=== PATIENT | female | born 1950 | race Caucasian/White ===

== ENCOUNTER 2017-10-31 14:15 | Emergency (ER) | payer MEDICARE ==
[~2017-10-31] VITALS: Ht 160 cm; Wt 65.3 kg
[2017-10-31] MEDS ORDERED: LAMO25TA5 PO (14:22)
[2017-10-31] MEDS ORDERED: DIVA500T4 PO (14:22)
[2017-10-31] MEDS ORDERED: LEVO50TA8 PO (14:22)
[2017-10-31] MEDS ORDERED: OLAN20TA3 PO (14:22)
--- NOTE | 2017-10-31 14:25 | NUR ---
PATIENT WAS SEEN AND EVAL ARVIN RICH AT BEDSIDE ROOM 03A.
[2017-10-31] MEDS ORDERED: LORAZEPAM 0.5 MG TABLET PO ONE (14:30)
[2017-10-31 14:45] VITALS: BP 12/80
--- NOTE | 2017-10-31 14:45 | NUR ---
Patient discharged to home in stable conditon. Written and verbal after care instructions given. Patient verbalizes understanding of instructions. Patient will follow up with PMD.
[2017-10-31] MEDS ORDERED: LORAZEPAM 1 MG TABLET ONE (14:53)
[2017-11-01] MEDS ORDERED: TIMO5SOL11 EACHEYE (17:13)
[2017-11-01] MEDS ORDERED: LATA2.5D7 EACHEYE (17:14)
[2017-11-01] MEDS ORDERED: BRIM10DR6 EACHEYE (17:17)
[2017-11-01] MEDS ORDERED: BETH25TA PO (23:53)
== END 2017-10-31 14:45 | disposition home or self-care (01) ==
LOC: ER 14:15
DX: F41.9 Anxiety disorder, unspecified (principal); F31.9 Bipolar disorder, unspecified
CPT/HCPCS: 99284; A4663

== ENCOUNTER 2017-11-01 13:03 | Inpatient (IN) | payer MEDICARE ==
[~2017-11-01] VITALS: Ht 160 cm; Wt 66.2 kg
[~2017-11-01 13:03] MED LIST: DIVA500T4 PO; LAMO25TA5 PO; LEVO50TA8 PO; OLAN20TA3 PO
--- NOTE | 2017-11-01 13:40 | NUR ---
PATIENT WAS SEEN AND EVAL BY DR OMALLEY AT BEDSIDE ROOM 02A. PATIENT NOTES NOT IN ANY DISTRESS.
[2017-11-01 14:50] LABS: *BILIRUBIN,URIN NEGATIVE (NEGATIVE); *BLOOD, URINE NEGATIVE (NEGATIVE); *COLOR,URINE STRAW (YELLOW); *KETONES,URINE NEGATIVE (NEGATIVE); *PROTEIN,URINE NEGATIVE (NEGATIVE); *UROBILINOGEN,URINE 0.2 E.U./dl (NORMAL); LEUKOCYTE ESTERASE ,URINE 1+ (NEGATIVE); NITRITE, URINE NEGATIVE (NEGATIVE); PH,URINE 5.5 (5.0-8.0); UGLUCOSE NEGATIVE (NEGATIVE)
[2017-11-01 14:56] LABS: *CLARITY,URINE SLIGHTLY HAZY (CLEAR)
[2017-11-01 15:02] LABS: BACTERIA,URINE FEW /HPF (NONE SEEN); SQUAMOUS EPITHELIAL CELL,UR MODERATE /HPF (NONE SEEN)
[2017-11-01 15:05] LABS: BASOPHILS # (AUTO) 0.1 K/uL (0.0-8.0); LYMPHOCYTES # (AUTO) 1.8 K/uL (20.0-40.0); MEAN CORPUSCULAR HEMOGLOBIN 23.5 uug (24.7-32.8); WHITE BLOOD COUNT (AUTO) 4.4 K/uL (3.8-11.8)
--- NOTE | 2017-11-01 15:10 | NUR ---
Spoke with Vivek Knutson for psych eval, eta 30 mins.
[2017-11-01 15:11] LABS: BASOPHILS % (AUTO) 1.7 % (0.0-2.0); EOSINOPHILS # (AUTO) 0.3 K/uL (0.0-0.7); HEMATOCRIT 31.7 % (31.2-41.9); HEMOGLOBIN 9.9 g/dL (10.9-14.3); LYMPHOCYTES % (AUTO) 40.8 % (20.5-51.5); MEAN CORPUSCULAR HGB CONC 31 g/dL (32.3-35.6); MEAN CORPUSCULAR VOLUME 75.5 fL (75.5-95.3); MONOCYTES # (AUTO) 0.4 K/uL (2.0-10.0); MONOCYTES % (AUTO) 9.1 % (0.0-11.0); NEUTROPHILS # (AUTO) 1.9 K/uL (1.8-8.9); NEUTROPHILS % (AUTO) 42.4 % (38.5-71.5); PLATELET COUNT (AUTO) 446 K/uL (179-408)
[2017-11-01 15:12] LABS: CARBON DIOXIDE 23 mmol/L (21-32); CHLORIDE 108 mmol/L (98-107); CREATININE 0.8 mg/dL (0.6-1.3); GLUCOSE 94 mg/dL (74-106); POTASSIUM 3.4 mmol/L (3.5-5.1); UREA NITROGEN, BLOOD 16 mg/dL (7-18)
[2017-11-01 15:18] LABS: ALANINE AMINOTRANSFERASE 21 U/L (14-59); ALKALINE PHOSPHATASE 81 U/L (50-136); ASPARTATE AMINOTRANSFERASE 11 U/L (15-37); BILIRUBIN,DIRECT 0.1 mg/dL (0.0-0.2); BILIRUBIN,TOTAL 0.2 mg/dL (0.2-1.0); TOTAL PROTEIN, SERUM 7.1 g/dL (6.4-8.2)
[2017-11-01 15:21] LABS: ACETAMINOPHEN < 2.0 ug/mL (10-30)
[2017-11-01 15:33] LABS: ETHANOL < 3 MG/DL (0-0)
[2017-11-01 15:41] LABS: *AMPHETAMINE, URINE NEGATIVE (NEGATIVE); *BARBITURATE, URINE NEGATIVE (NEGATIVE); *CANNABINOID, URINE NEGATIVE (NEGATIVE); *COCCAINE, URINE NEGATIVE (NEGATIVE); *OPIATE, URINE NEGATIVE (NEGATIVE); *PHENCYCLIDINE SCREEN,URINE NEGATIVE (NEGATIVE)
[2017-11-01 15:59] LABS: THYROID STIMULATING HORMONE 0.838 mIU/mL (0.358-3.740)
[2017-11-01 17:00] VITALS: BP 132/66
[2017-11-01] MEDS ORDERED: MAG HYDROX/AL HYDROX/SIMETH 30 ML LIQUID UDC PO PRN (17:00)
[2017-11-01] MEDS ORDERED: MAGNESIUM HYDROXIDE 30 ML LIQUID UDC PO PRN (17:00)
[2017-11-01] MEDS ORDERED: TIMO5SOL11 EACHEYE (17:13)
[2017-11-01] MEDS ORDERED: LATA2.5D7 EACHEYE (17:14)
[2017-11-01] MEDS ORDERED: BRIM10DR6 EACHEYE (17:17)
[2017-11-01 19:51] VITALS: BP 105/72
--- NOTE | 2017-11-01 20:00 | NUR ---
PT RECEIVED IN THE HALLWAY NEAR THE NURSES STATION, ABLE TO MAKE NEEDS KNOWN, ASKING FOR HER 'OVER REACTIVE BLADDER' MEDICINE. PT ALSO REQUESTED FOR SLEEP MEDICINE, WILL CONTINUE TO MONITOR CLOSELY.
[2017-11-01] MEDS: ACETAMINOPHEN 325 MG TABLET PO PRN (20:27)
[2017-11-01] MEDS: TEMAZEPAM 7.5 MG CAPSULE PO PRN (20:28)
[2017-11-01] MEDS: ERYTHROMYCIN 0.5% OPHT OINT 3.5 GM TUBE LEFTEYE SCH (20:28)
[2017-11-01] MEDS: LATANOPROST OPHT DROP 2.5 ML BOTTLE EACHEYE SCH (22:19)
[2017-11-01] MEDS: TIMOLOL MALEATE XE 0.5% OPHT 5 ML BOTTLE EACHEYE SCH (22:19)
[2017-11-01] MEDS: LORAZEPAM 1 MG TABLET PO PRN (23:42)
[2017-11-01] MEDS ORDERED: BETH25TA PO (23:53)
[2017-11-02] MEDS: LEVOTHYROXINE SODIUM 50 MCG TABLET PO SCH (06:30)
[2017-11-02 07:30] VITALS: BP 115/71
[2017-11-02] MEDS: LORAZEPAM 1 MG TABLET PO PRN ×2 (09:27→13:47)
[2017-11-02] MEDS: TIMOLOL MALEATE XE 0.5% OPHT 5 ML BOTTLE EACHEYE SCH ×2 (09:27→20:44)
[2017-11-02] MEDS: BRIMONIDINE 0.2% OPHT DROP 10 ML BOTTLE EACHEYE SCH ×3 (09:27→17:50)
--- NOTE | 2017-11-02 11:35 | NUR ---
Initial Discharge Note: Patient currently resides at [address] [place] [address] , [place] [address]; [phone]. Pt reports that she wants to go back to her home after discharge. Pt states that she has no primary contact and does not want anyone involved in her discharge planning. SW will follow up with MD and patient to discuss most appropriate discharge plans. SW will form a safe and proper discharge.
[2017-11-02] MEDS: ACETAMINOPHEN 325 MG TABLET PO PRN (12:16)
[2017-11-02 15:25] VITALS: BP 101/75
[2017-11-02 19:50] VITALS: BP 90/53
[2017-11-02] MEDS: DIVALPROEX 250 MG TABLET.DR PO SCH (20:36)
[2017-11-02] MEDS: QUETIAPINE FUMARATE 100 MG TABLET PO SCH (20:36)
[2017-11-02] MEDS: MIRTAZAPINE 15 MG TABLET PO SCH (20:36)
[2017-11-02] MEDS: ERYTHROMYCIN 0.5% OPHT OINT 3.5 GM TUBE LEFTEYE SCH (20:43)
[2017-11-02] MEDS: LATANOPROST OPHT DROP 2.5 ML BOTTLE EACHEYE SCH (20:44)
--- NOTE | 2017-11-02 22:00 | NUR ---
received to care, lying in bed, pleasant, upon approach. compliant with medications and staff direction. as of 2199, she remains awake. no distress noted. will continue to monitor closely.
[2017-11-02] MEDS: TEMAZEPAM 7.5 MG CAPSULE PO PRN (22:07)
--- NOTE | 2017-11-02 22:07 | NUR ---
PRN restoril given for insomnia.
[2017-11-02] MEDS ORDERED: POTASSIUM CHLORIDE 20 MEQ TAB.PRT.SR PO ONE (22:45)
[2017-11-02] MEDS ORDERED: CEPHALEXIN MONOHYDRATE 250 MG CAPSULE PO ONE (23:00)
--- NOTE | 2017-11-02 23:00 | NUR ---
appears to be asleep. no distress noted.
[2017-11-02] MEDS ORDERED: CEPHALEXIN MONOHYDRATE 250 MG CAPSULE ONE (23:55)
[2017-11-03] MEDS: LORAZEPAM 1 MG TABLET PO PRN ×2 (03:17→07:57)
--- NOTE | 2017-11-03 03:17 | NUR ---
is now awake. PRN ativan given for anxiety.
[2017-11-03] MEDS: LEVOTHYROXINE SODIUM 50 MCG TABLET PO SCH (06:14)
[2017-11-03] MEDS: CEPHALEXIN MONOHYDRATE 250 MG CAPSULE PO SCH ×3 (06:14→22:04)
[2017-11-03 07:54] VITALS: BP 106/75
[2017-11-03] MEDS: ACETAMINOPHEN 325 MG TABLET PO PRN (07:57)
[2017-11-03] MEDS: DIVALPROEX 250 MG TABLET.DR PO SCH ×3 (08:44→20:36)
[2017-11-03] MEDS: TIMOLOL MALEATE XE 0.5% OPHT 5 ML BOTTLE EACHEYE SCH ×2 (08:45→20:37)
[2017-11-03] MEDS: BRIMONIDINE 0.2% OPHT DROP 10 ML BOTTLE EACHEYE SCH ×3 (08:45→17:35)
--- NOTE | 2017-11-03 13:25 | NUR ---
GPS/VEGETABLE BUNCHER-PATIENT WEARS BILATERAL HEARING AIDS.ANXIOUS,WORRIED THAT SHE WAS PUT ON 14 DAY HOLS, EXPLAINED REASONS , VERBALIZED UNDERSTANDING
[2017-11-03 15:03] VITALS: BP 114/70
--- NOTE | 2017-11-03 15:26 | NUR ---
Gps/Planing Machine Operator- Claimed she forgot to asked Medical Doctor about her urecholine 25 mg 2x a day, claimed she had been taking the medicine to help her bladder.Wears bilateral hearing aids on, reminded to be extra careful where she puts them when she takes them out, verbalized understanding
[2017-11-03] MEDS: BETHANECHOL CHLORIDE 25 MG TABLET PO SCH (17:34)
[2017-11-03 19:49] VITALS: BP 99/62
[2017-11-03] MEDS: QUETIAPINE FUMARATE 100 MG TABLET PO SCH (20:36)
[2017-11-03] MEDS: MIRTAZAPINE 15 MG TABLET PO SCH (20:36)
[2017-11-03] MEDS: ATORVASTATIN 20 MG TABLET PO SCH (20:36)
[2017-11-03] MEDS: LATANOPROST OPHT DROP 2.5 ML BOTTLE EACHEYE SCH (20:37)
[2017-11-03] MEDS: ERYTHROMYCIN 0.5% OPHT OINT 3.5 GM TUBE LEFTEYE SCH (20:37)
[2017-11-03] MEDS: TEMAZEPAM 7.5 MG CAPSULE PO PRN (22:14)
--- NOTE | 2017-11-04 05:32 | NUR ---
Patient slept 10 hours this shift. No behavioral issues. Med compliant. No acute distress noted. Safety and comfort measures maintained t/o shift. Room is kept clutter free. Bed was in low and locked position. All meds given as ordered. All needs met.
[2017-11-04] MEDS: LEVOTHYROXINE SODIUM 50 MCG TABLET PO SCH (06:08)
[2017-11-04] MEDS: CEPHALEXIN MONOHYDRATE 250 MG CAPSULE PO SCH ×3 (06:08→21:46)
[2017-11-04] MEDS: BETHANECHOL CHLORIDE 25 MG TABLET PO SCH ×2 (06:40→17:39)
[2017-11-04 07:30] VITALS: BP 127/81
[2017-11-04] MEDS: TIMOLOL MALEATE XE 0.5% OPHT 5 ML BOTTLE EACHEYE SCH ×2 (08:46→20:23)
[2017-11-04] MEDS: BRIMONIDINE 0.2% OPHT DROP 10 ML BOTTLE EACHEYE SCH ×3 (08:46→17:39)
[2017-11-04] MEDS: DIVALPROEX 250 MG TABLET.DR PO SCH ×3 (08:46→20:24)
[2017-11-04] MEDS ORDERED: PNEUMOCOCCAL 23-VAL P-SAC VAC 0.5 ML VIAL IM ONE (09:00)
[2017-11-04] MEDS: ACETAMINOPHEN 325 MG TABLET PO PRN (10:30)
--- NOTE | 2017-11-04 12:44 | NUR ---
Gps/Patient Care Representative -Participates and attends group therapy. Complained of headache, tylenol 650 mg po given with adequate relief.Stays in the dinning room during her meals.Vebalizing needs and interacting with her selected peers.
[2017-11-04] MEDS: LORAZEPAM 1 MG TABLET PO PRN (14:30)
[2017-11-04 15:39] VITALS: BP 112/76
--- NOTE | 2017-11-04 18:00 | NUR ---
Gps/Senior Sous Chef- Patient received pneumococcal vaccine as requested, administered IM to her left deltoid area .
[2017-11-04 19:37] VITALS: BP 128/74
[2017-11-04] MEDS: LATANOPROST OPHT DROP 2.5 ML BOTTLE EACHEYE SCH (20:23)
[2017-11-04] MEDS: QUETIAPINE FUMARATE 100 MG TABLET PO SCH (20:24)
[2017-11-04] MEDS: ERYTHROMYCIN 0.5% OPHT OINT 3.5 GM TUBE LEFTEYE SCH (20:24)
[2017-11-04] MEDS: MIRTAZAPINE 15 MG TABLET PO SCH (20:24)
[2017-11-04] MEDS: ATORVASTATIN 20 MG TABLET PO SCH (20:24)
[2017-11-04] MEDS: TEMAZEPAM 7.5 MG CAPSULE PO PRN (22:09)
[2017-11-04] MEDS ORDERED: TEMAZEPAM 7.5 MG CAPSULE ONE (22:17)
[2017-11-05] MEDS: CEPHALEXIN MONOHYDRATE 250 MG CAPSULE PO SCH ×3 (05:48→22:09)
[2017-11-05] MEDS: LEVOTHYROXINE SODIUM 50 MCG TABLET PO SCH (06:03)
[2017-11-05] MEDS: BETHANECHOL CHLORIDE 25 MG TABLET PO SCH ×2 (06:37→15:59)
[2017-11-05 07:30] VITALS: BP 122/73
[2017-11-05] MEDS: DIVALPROEX 250 MG TABLET.DR PO SCH ×3 (09:01→20:18)
[2017-11-05] MEDS: BRIMONIDINE 0.2% OPHT DROP 10 ML BOTTLE EACHEYE SCH ×3 (09:02→16:01)
[2017-11-05] MEDS: TIMOLOL MALEATE XE 0.5% OPHT 5 ML BOTTLE EACHEYE SCH ×2 (09:02→20:18)
[2017-11-05] MEDS: LORAZEPAM 1 MG TABLET PO PRN (09:56)
--- NOTE | 2017-11-05 11:17 | NUR ---
Firearms Reporting: ZELDA submitted Mental Health Report to [facility] on 11/05.
[2017-11-05] MEDS: ACETAMINOPHEN 325 MG TABLET PO PRN (17:19)
[2017-11-05 17:26] VITALS: BP 93/57
[2017-11-05 20:12] VITALS: BP 110/64
[2017-11-05] MEDS: ATORVASTATIN 20 MG TABLET PO SCH (20:18)
[2017-11-05] MEDS: QUETIAPINE FUMARATE 100 MG TABLET PO SCH (20:18)
[2017-11-05] MEDS: MIRTAZAPINE 15 MG TABLET PO SCH (20:18)
[2017-11-05] MEDS: LATANOPROST OPHT DROP 2.5 ML BOTTLE EACHEYE SCH (20:19)
[2017-11-05] MEDS: ERYTHROMYCIN 0.5% OPHT OINT 3.5 GM TUBE LEFTEYE SCH (20:19)
[2017-11-05] MEDS: TEMAZEPAM 7.5 MG CAPSULE PO PRN (21:19)
[2017-11-06] MEDS: LORAZEPAM 1 MG TABLET PO PRN ×2 (02:43→15:55)
[2017-11-06] MEDS: LEVOTHYROXINE SODIUM 50 MCG TABLET PO SCH (06:02)
[2017-11-06] MEDS: CEPHALEXIN MONOHYDRATE 250 MG CAPSULE PO SCH ×3 (06:03→21:32)
[2017-11-06] MEDS: BETHANECHOL CHLORIDE 25 MG TABLET PO SCH ×2 (06:38→15:55)
[2017-11-06 07:30] VITALS: BP 113/76
[2017-11-06] MEDS: DIVALPROEX 250 MG TABLET.DR PO SCH ×2 (08:19→13:47)
[2017-11-06] MEDS: BRIMONIDINE 0.2% OPHT DROP 10 ML BOTTLE EACHEYE SCH ×3 (08:20→17:39)
[2017-11-06] MEDS: TIMOLOL MALEATE XE 0.5% OPHT 5 ML BOTTLE EACHEYE SCH ×2 (08:20→21:50)
[2017-11-06] MEDS: ACETAMINOPHEN 325 MG TABLET PO PRN (13:47)
[2017-11-06 16:38] VITALS: BP 99/71
[2017-11-06 20:00] VITALS: BP 90/59
[2017-11-06] MEDS: ATORVASTATIN 20 MG TABLET PO SCH (21:30)
[2017-11-06] MEDS: QUETIAPINE FUMARATE 100 MG TABLET PO SCH (21:30)
[2017-11-06] MEDS: MIRTAZAPINE 15 MG TABLET PO SCH (21:30)
[2017-11-06] MEDS: BENZTROPINE MESYLATE 1 MG TABLET PO SCH (21:30)
[2017-11-06] MEDS: DIVALPROEX 500 MG TABLET.DR PO SCH (21:31)
[2017-11-06] MEDS: ERYTHROMYCIN 0.5% OPHT OINT 3.5 GM TUBE LEFTEYE SCH (21:49)
[2017-11-06] MEDS: LATANOPROST OPHT DROP 2.5 ML BOTTLE EACHEYE SCH (21:49)
[2017-11-07] MEDS: TEMAZEPAM 7.5 MG CAPSULE PO PRN ×2 (00:46→23:20)
--- NOTE | 2017-11-07 06:00 | NUR ---
slept well, last night. no distress noted.
[2017-11-07] MEDS: CEPHALEXIN MONOHYDRATE 250 MG CAPSULE PO SCH ×3 (06:14→21:03)
[2017-11-07] MEDS: LEVOTHYROXINE SODIUM 50 MCG TABLET PO SCH (06:14)
[2017-11-07 07:08] LABS: BASOPHILS # (AUTO) 0.1 K/uL (0.0-8.0); BASOPHILS % (AUTO) 1.8 % (0.0-2.0); CREATININE 0.8 mg/dL (0.6-1.3); EOSINOPHILS # (AUTO) 0.2 K/uL (0.0-0.7); EOSINOPHILS % (AUTO) 6.7 % (0.0-7.0); HEMATOCRIT 31.2 % (31.2-41.9); HEMOGLOBIN 9.7 g/dL (10.9-14.3); LYMPHOCYTES # (AUTO) 1.6 K/uL (20.0-40.0); LYMPHOCYTES % (AUTO) 47.6 % (20.5-51.5); MAGNESIUM 2.2 mg/dL (1.8-2.4); MEAN CORPUSCULAR HEMOGLOBIN 23.4 uug (24.7-32.8); MEAN CORPUSCULAR HGB CONC 31 g/dL (32.3-35.6); MEAN CORPUSCULAR VOLUME 75.5 fL (75.5-95.3); MONOCYTES # (AUTO) 0.4 K/uL (2.0-10.0); MONOCYTES % (AUTO) 11.3 % (0.0-11.0); NEUTROPHILS # (AUTO) 1.1 K/uL (1.8-8.9); NEUTROPHILS % (AUTO) 32.6 % (38.5-71.5); PHOSPHOROUS 4.2 mg/dL (2.5-4.9); PLATELET COUNT (AUTO) 431 K/uL (179-408); POTASSIUM 4.6 mmol/L (3.5-5.1); RED BLOOD CELL COUNT(AUTO) 4.14 MIL/uL (3.63-4.92); WHITE BLOOD COUNT (AUTO) 3.4 K/uL (3.8-11.8)
[2017-11-07] MEDS: BETHANECHOL CHLORIDE 25 MG TABLET PO SCH ×2 (07:50→16:08)
[2017-11-07 08:00] VITALS: BP 129/70
[2017-11-07] MEDS: BRIMONIDINE 0.2% OPHT DROP 10 ML BOTTLE EACHEYE SCH ×3 (08:06→16:08)
[2017-11-07] MEDS: TIMOLOL MALEATE XE 0.5% OPHT 5 ML BOTTLE EACHEYE SCH ×2 (08:07→21:03)
[2017-11-07] MEDS: DIVALPROEX 250 MG TABLET.DR PO SCH ×2 (08:07→12:53)
[2017-11-07] MEDS: LORAZEPAM 1 MG TABLET PO PRN ×2 (11:50→20:40)
--- NOTE | 2017-11-07 11:50 | NUR ---
Pt anxiety is 9/10. Pt attempted breathing techniques to relax and distraction. Ativan given . med effective
[2017-11-07 16:00] VITALS: BP 113/51
--- NOTE | 2017-11-07 18:00 | NUR ---
PT OBSERVED RESTING IN BED. NO SIGNS OF RESPIRATORY DISTRESS, BREATHING EQUALLY CHEST RISING AND FALLING. PT REPORTS NO ANXIETY AT THIS TIME. PT CONTRACTS FOR SAFETY INSIDE AND OUTSIDE OF THE HOSPITAL. PT DENIES SI AT THIS TIME. CONTINUE TO MONITOR
[2017-11-07 20:41] VITALS: BP 110/54
[2017-11-07] MEDS: ATORVASTATIN 20 MG TABLET PO SCH (21:00)
[2017-11-07] MEDS: QUETIAPINE FUMARATE 100 MG TABLET PO SCH (21:01)
[2017-11-07] MEDS: BENZTROPINE MESYLATE 1 MG TABLET PO SCH (21:01)
[2017-11-07] MEDS: MIRTAZAPINE 15 MG TABLET PO SCH (21:01)
[2017-11-07] MEDS: LATANOPROST OPHT DROP 2.5 ML BOTTLE EACHEYE SCH (21:03)
[2017-11-07] MEDS: ERYTHROMYCIN 0.5% OPHT OINT 3.5 GM TUBE LEFTEYE SCH (21:04)
[2017-11-07] MEDS: DIVALPROEX 500 MG TABLET.DR PO SCH (21:31)
--- NOTE | 2017-11-07 22:00 | NUR ---
received to care, lying in bed, pleasant, upon approach. compliant with medications and staff direction. PRN ativan was given at 2039, for anxiety. as of 2199, she appears to be asleep. no distress noted. will continue to monitor closely.
--- NOTE | 2017-11-07 23:20 | NUR ---
PRN restoril given, for anxiety.
--- NOTE | 2017-11-07 23:50 | NUR ---
appears to be asleep. no distress noted.
[2017-11-08] MEDS: LEVOTHYROXINE SODIUM 50 MCG TABLET PO SCH (06:24)
[2017-11-08] MEDS: CEPHALEXIN MONOHYDRATE 250 MG CAPSULE PO SCH ×3 (06:24→22:07)
[2017-11-08 07:30] VITALS: BP 113/77
[2017-11-08] MEDS: BETHANECHOL CHLORIDE 25 MG TABLET PO SCH ×2 (08:24→17:47)
[2017-11-08] MEDS: DIVALPROEX 250 MG TABLET.DR PO SCH ×2 (08:24→13:00)
[2017-11-08] MEDS: BRIMONIDINE 0.2% OPHT DROP 10 ML BOTTLE EACHEYE SCH ×3 (08:25→17:47)
[2017-11-08] MEDS: TIMOLOL MALEATE XE 0.5% OPHT 5 ML BOTTLE EACHEYE SCH ×2 (08:25→20:14)
--- NOTE | 2017-11-08 15:00 | NUR ---
Gps/Behavioral Analyst- Stayed in the activity room ,reading her book, had been compliant with her routine medications.Cooperative with staff, denies any discomfort at this time. Discharge planning for tomorrow, patient was well informed/
[2017-11-08 16:16] VITALS: BP 109/50
[2017-11-08] MEDS: LORAZEPAM 1 MG TABLET PO PRN (20:07)
[2017-11-08] MEDS: LATANOPROST OPHT DROP 2.5 ML BOTTLE EACHEYE SCH (20:14)
[2017-11-08] MEDS ORDERED: BENZTROPINE MESYLATE 1 MG TABLET PO SCH (21:00)
[2017-11-08 21:07] VITALS: BP 91/51
[2017-11-08 21:30] VITALS: BP 90/46
[2017-11-08 22:00] VITALS: BP 92/48
--- NOTE | 2017-11-08 22:00 | NUR ---
received to care, watching tv, pleasant upon approach. PRN ativan given at 2006, for anxiety. by 2099, he rb/p was 90/46. she was offered po fluids, and saltine crackers. as of 2199, her b/p is now 92/48. she denies any lightheadedness, dizziness, or other sx. she was placed in Trendelenburg position, in bed. depakote and seroquel were both held. will continue to monitor closely.
[2017-11-08] MEDS: MIRTAZAPINE 15 MG TABLET PO SCH (22:07)
[2017-11-08] MEDS: QUETIAPINE FUMARATE 100 MG TABLET PO SCH (22:10)
[2017-11-08] MEDS: DIVALPROEX 500 MG TABLET.DR PO SCH (22:10)
[2017-11-08] MEDS: ERYTHROMYCIN 0.5% OPHT OINT 3.5 GM TUBE LEFTEYE SCH (22:10)
[2017-11-08] MEDS: ATORVASTATIN 20 MG TABLET PO SCH (22:10)
[2017-11-08 23:00] VITALS: BP 100/60
--- NOTE | 2017-11-08 23:00 | NUR ---
b/p is now 100/60. hr 66. bed returned to normal position.
[2017-11-09] MEDS: TEMAZEPAM 7.5 MG CAPSULE PO PRN (00:15)
--- NOTE | 2017-11-09 00:15 | NUR ---
pt is now awake. PRN restoril, given for insomnia.
--- NOTE | 2017-11-09 00:45 | NUR ---
appears to be asleep. no distress noted.
--- NOTE | 2017-11-09 06:00 | NUR ---
is now awake. no distress noted.
[2017-11-09] MEDS: LEVOTHYROXINE SODIUM 50 MCG TABLET PO SCH (06:08)
[2017-11-09] MEDS: CEPHALEXIN MONOHYDRATE 250 MG CAPSULE PO SCH (06:08)
[2017-11-09] MEDS: BETHANECHOL CHLORIDE 25 MG TABLET PO SCH ×2 (07:58→08:13)
[2017-11-09] MEDS: DIVALPROEX 250 MG TABLET.DR PO SCH ×2 (08:13→12:04)
[2017-11-09] MEDS: BRIMONIDINE 0.2% OPHT DROP 10 ML BOTTLE EACHEYE SCH (08:13)
[2017-11-09] MEDS: TIMOLOL MALEATE XE 0.5% OPHT 5 ML BOTTLE EACHEYE SCH (08:13)
--- NOTE | 2017-11-09 08:24 | NUR ---
DC Note: Patient will be discharged home [[address] [place] [address]; [phone]] via taxi at 11am. Patient is alert and oriented x4. Patient is aware and agreeable to discharge plans, and denies current SI. Patient stated she will follow up with her psychiatrist Dr. Bazzi [[address] [place], [place] [address]; ] and telephone lineworker Dr. Spencer Denson [[address], [place] [address]; ]. Patient was also provided referrals for the National Suicide Prevention Lifeline and the [facility] Crisis Line .
--- NOTE | 2017-11-09 11:15 | NUR ---
Gps/Thread Drawer- Dr Kim was in to see patient, informed of the dicharge plan this am. Reviewed medications/prescriptions, diet, safety emphasized, follow up with her Primary Medicial Doctor and Pyschiatrist after discharged, patient verbalized understanding. All belongings returned back to patient. In good spirit, no complaints noted.Denies any thoughts of hurting self.Called for [employer]- to transport patient home.
--- NOTE | 2017-11-09 12:05 | NUR ---
Gps/Heel Washer Stringing Machine Operator- Discharged to her home in [place] via taxi.
== END 2017-11-09 12:07 | disposition home or self-care (01) | DRG 885 ==
LOC: ER 13:03 → GPS 16:45
PROVIDERS: ADMIT Psychiatry & Neurology Psychiatry; ATTEND Nurse Practitioner Acute Care
DX: F31.5 Bipolar disorder, current episode depressed, severe, with psychotic features (principal); D63.8 Anemia in other chronic diseases classified elsewhere; G31.84 Mild cognitive impairment of uncertain or unknown etiology; H40.9 Unspecified glaucoma; Z91.5 Personal history of self-harm; E78.5 Hyperlipidemia, unspecified; E87.6 Hypokalemia; F41.9 Anxiety disorder, unspecified; R79.89 Other specified abnormal findings of blood chemistry; Z79.899 Other long term (current) drug therapy; G47.9 Sleep disorder, unspecified
CPT/HCPCS: 36415; 70030-TC; 70450; 71045; 80164; 80307; 83605; 83735; 84100; 84443; 85025; 85730; 87040; 87086; 90732; 93005; G0480; G0480-TC; J3490; J3590